=== PATIENT | female | born 1950 | race Caucasian/White ===

== ENCOUNTER → 2017-11-15 07:35 | Outpatient (CLI) | payer OTHER ==
[~2017-11-15 07:35] MED LIST: CLONAZEPAM0.5 MG PO; METFORMIN HCL1000 MG PO; NOVOLIN R100 UNIT/1 SUBCUTANEO; PREDNISONE20 MG PO; PREDNISONE50 MG PO
== END | disposition home or self-care (01) ==
LOC: LAB 07:35
DX: D69.3 Immune thrombocytopenic purpura (principal)

== ENCOUNTER 2021-02-09 11:29 | Outpatient (CLI) | payer OTHER | END 2021-02-09 11:38 | disposition home or self-care (01) | LOC: SONOGRAMA 11:29 | PROVIDERS: ATTEND Pathology Anatomic Pathology & Clinical Pathology | DX: D34 Benign neoplasm of thyroid gland (principal); E04.1 Nontoxic single thyroid nodule ==

== ENCOUNTER 2021-02-16 15:55 | Emergency (ER) | payer OTHER ==
[~2021-02-16] VITALS: Ht 165.1 cm; Wt 81.2 kg
[2021-02-16] MEDS ORDERED: TRULICITY0.75 MG/0. (16:07)
[2021-02-16] MEDS ORDERED: HORIZANT300 MG (16:09)
[2021-02-16] MEDS ORDERED: NORFLEX100MG PO (16:35)
[2021-02-16] MEDS ORDERED: DOLOGEN CAPLET1 EACH PO (16:35)
== END 2021-02-16 17:24 | disposition home or self-care (01) ==
LOC: ER 15:55
DX: M54.5 Low back pain (principal); M79.604 Pain in right leg

== ENCOUNTER → 2021-05-22 15:00 | Outpatient (CLI) | payer OTHER ==
[~2021-05-22 15:00] MED LIST changes: +DOLOGEN CAPLET1 EACH PO; +HORIZANT300 MG; +NORFLEX100MG PO; +TRULICITY0.75 MG/0.
== END | disposition home or self-care (01) ==
LOC: PPH VACUNA 15:00
DX: Z23 Encounter for immunization (principal)

== ENCOUNTER 2022-01-03 08:00 | Outpatient (CLI) | payer OTHER | END 2022-01-03 08:30 | disposition home or self-care (01) | LOC: PPH VACUNA 08:00 | PROVIDERS: ATTEND Emergency Medicine Pediatric Emergency Medicine | DX: Z23 Encounter for immunization (principal) ==

== ENCOUNTER 2024-09-16 18:33 | Emergency (ER) | payer OTHER ==
[~2024-09-16] VITALS: Ht 165.1 cm; Wt 80.3 kg
[2024-09-16] MEDS ORDERED: AMBIEN5 MG PO (19:29)
[2024-09-16 19:30] VITALS: BP 200/90; O2SAT 99
[2024-09-16] MEDS ORDERED: TOPROL XL25 M1 PO (19:30)
[2024-09-16] MEDS ORDERED: METOCLOPRAMIDE HCL 5 MG/ML VIAL IM STA (20:44)
[2024-09-16] MEDS ORDERED: MECLIZINE HCL 25 MG TABLET PO STA (20:44)
[2024-09-16] MEDS ORDERED: hydrOXYzine PAMOATE 50 MG CAPSULE PO STA (20:45)
== END 2024-09-16 23:02 | disposition home or self-care (01) ==
LOC: ER 18:33
DX: H81.10 Benign paroxysmal vertigo, unspecified ear (principal); I10 Essential (primary) hypertension; E11.9 Type 2 diabetes mellitus without complications; Z79.84 Long term (current) use of oral hypoglycemic drugs; Z88.8 Allergy status to other drugs, medicaments and biological substances; Z91.013 Allergy to seafood
CPT/HCPCS: 93005; 96372; 99283; J2765

== ENCOUNTER 2024-12-31 10:10 | Outpatient (CLI) | payer OTHER ==
[~2024-12-31 10:10] MED LIST changes: +AMBIEN5 MG PO; +TOPROL XL25 M1 PO
== END 2024-12-31 10:12 | disposition home or self-care (01) ==
LOC: SONOGRAMA 10:10
PROVIDERS: ATTEND Pathology Anatomic Pathology & Clinical Pathology
DX: D34 Benign neoplasm of thyroid gland (principal); E04.1 Nontoxic single thyroid nodule

== ENCOUNTER 2025-02-08 17:01 | Inpatient (IN) | payer OTHER ==
[~2025-02-08] VITALS: Ht 165.1 cm; Wt 79.4 kg
--- NOTE | 2025-02-08 19:02 | NUR ---
PACIENTE ALERTA Y ORIENTADA X3 LA MISMA REFIERE QUE ROTHMAN MEDICO LA ENVIO A JAYLIN DE EMERGENCIA POR QUE TIENE LAS PLAQUETAS EN MENOS DE 5000.LA PACIENTE PRESENTA EMATOMAS EN LAS COYONTURAS. S/V ESTABLE DENTRO DE ROTHMAN CONDICION.PACIENTE EN LEOLA CON BARANDAS ELEVADAS EN ESPERA DE EVALUACION MEDICA.
[2025-02-08] MEDS ORDERED: 0.9 % SODIUM CHLORIDE 1,000 ML IV SCH ×2 (19:30→23:15)
--- NOTE | 2025-02-08 20:08 | NUR ---
SE EDUCA A PTE SOBRE [place] MEDICO, SE TANGELA MUESTRAS DE LABORATORIO UTILIZANDO MEDIDAS ASEPTICAS. SE COLOCA H/L ANGELINA DE EDEMA. SE COLOCA IV FLUIDS A PTE AYLIN ORDEN MEDICA.
[2025-02-08 20:09] LABS: INR 1.22; PROTHROMBIN TIME 13.1 SECONDS (9.0-11.5)
[2025-02-08 20:12] LABS: BASO % 0.9 % (0.1-1.2); EOS # 0.15 (0.04-0.54); EOS % 3.5 % (0.7-7.0); HEMATOCRIT 35.5 % (34.1-44.9); HEMOGLOBIN 12.3 g/dL (11.2-15.7); LYMPH # 2.37 (1.18-3.74); LYMPH % 55.1 % (19.3-53.1); MEAN CORPUSCULAR HEMOGLOBIN 31.2 pg (25.6-32.2); MONO # 0.37 (0.24-0.82); MONO % 8.6 % (4.7-12.5); NEUT # 1.34 (1.56-6.13); NEUT % 31.2 % (34.0-71.1); RED BLOOD COUNT 3.94 M/uL (3.93-5.22); RED CELL DISTRIBUTION WIDTH 13.7 % (11.6-14.4)
[2025-02-08 20:13] LABS: ALBUMIN 3.6 gm/dL (3.4-5.0); BILIRUBIN TOTAL 1.49 mg/dL (0.3-1.2); CREATININE SERUM 0.76 mg/dL (0.55-1.02); GFR 74.39; GLOBULINA 3.5 G/DL (2.4-3.5); POTASSIUM 4.74 mEq/L (3.5-5.1); TOTAL PROTEIN 7.1 gm/dL (6.4-8.2)
[2025-02-08 21:22] LABS: PLATELET COUNT 1 K/uL (163-369)
--- NOTE | 2025-02-08 22:04 | NUR ---
SE REQUIZAN 2 UNIDADES DE AFERESIS A PTE AYLIN ORDEN MEDICA, PTE FIRMA AUTORIZACION DE TRANSFUCION Y SE COLOCA EL MISMO EN RECORD. SE LLEVAN TUBOS PILOTOS A LABORATORIO A LAS 10:10PM.
--- NOTE | 2025-02-08 22:40 | NUR ---
SE LLENA 3ER TUBO DENYS A PTE (TIPO SANJAY), SE LLEVA EL MISMO A LABORATORIO.
[2025-02-08] MEDS ORDERED: METHYLPREDNISOLONE SOD SUCC 125 MG VIAL IV ONE (23:30)
[2025-02-08] MEDS ORDERED: DEXTROSE 50 % IN WATER 0.5 G/ML VIAL IV PRN (23:30)
[2025-02-08] MEDS ORDERED: INSULIN LISPRO 1,000 UNIT/10 ML UNITS SUBCUTANEO PRN ×2 (23:30)
[2025-02-08] MEDS ORDERED: ACETAMINOPHEN 500 MG GEL..CAP PO PRN (23:30)
[2025-02-08] MEDS ORDERED: DEXTROSE 50 % IN WATER 0.5 G/ML DISP.SYRIN IV PRN (23:30)
[2025-02-09] MEDS ORDERED: METOPROLOL SUCCINATE 25 MG TAB.SR.24H PO SCH (09:00)
[2025-02-09] MEDS ORDERED: ROSUVASTATIN CALCIUM 10 MG TABLET PO SCH (09:00)
[2025-02-09] MEDS ORDERED: METHYLPREDNISOLONE SOD SUCC 40 MG VIAL IV SCH (09:00)
[2025-02-09 09:20] LABS: D DIMER 6.98 MG/L
[2025-02-09 12:16] LABS: URINE APPEARANCE Clear; URINE BILIRRUBIN Negative (NEGATIVE); URINE BLOOD Small; URINE COLOR Dark Yellow; URINE KETONE Trace (NEGATIVE); URINE LEUKOCYTE Large; URINE NITRATE Negative; URINE PROTEIN Trace (NEGATIVE)
[2025-02-09 12:20] LABS: URINE EPITHELIAL CELLS 133.9 uL (0.0-38.8); URINE RBC 77.7 uL (0.0-20.8); URINE WBC 161.1 uL (0.0-23.2)
[2025-02-09 13:01] LABS: URINE GLUCOSE 250 MG/DL (NEGATIVE)
[2025-02-09 13:02] LABS: URINE CAST 0.29 uL (0.0-1.40); URINE CRYSTALS MODERATE /HPF
[2025-02-09 17:37] VITALS: BP 150/80; O2SAT 99
[2025-02-09] MEDS ORDERED: FAMOTIDINE/PF 20 MG in 0.9 % SODIUM CHLORIDE 8 ML IV PUSH SCH (21:00)
[2025-02-09 23:36] LABS: HEMATOCRIT 33.6 % (34.1-44.9); HEMOGLOBIN 11.4 g/dL (11.2-15.7); LYMPH # 0.84 (1.18-3.74); LYMPH % 31.3 % (19.3-53.1); MEAN CORPUSCULAR HEMOGLOBIN 31.2 pg (25.6-32.2); MONO # 0.06 (0.24-0.82); MONO % 2.2 % (4.7-12.5); NEUT # 1.77 (1.56-6.13); NEUT % 66.1 % (34.0-71.1); RED BLOOD COUNT 3.65 M/uL (3.93-5.22); RED CELL DISTRIBUTION WIDTH 13.5 % (11.6-14.4)
[2025-02-10 00:39] VITALS: BP 136/72; O2SAT 95
[2025-02-10 00:58] LABS: PLATELET COUNT 4 K/uL (163-369)
[2025-02-10] MEDS ORDERED: PANTOPRAZOLE SODIUM 40 MG TABLET.DR PO SCH (09:00)
[2025-02-10] MEDS ORDERED: METHYLPREDNISOLONE SOD SUCC 40 MG VIAL IV SCH (09:00)
[2025-02-10] MEDS ORDERED: IMMUN GLOB G(IGG)/GLY/IGA OV50 20 G/200 ML VIAL IV SCH (09:00)
[2025-02-10 10:02] VITALS: BP 143/72; O2SAT 97
[2025-02-10 17:03] VITALS: BP 150/84; O2SAT 98
[2025-02-10 17:57] LABS: URINE APPEARANCE Clear; URINE BILIRRUBIN Negative (NEGATIVE); URINE BLOOD NHT; URINE COLOR Yellow; URINE KETONE Negative (NEGATIVE); URINE LEUKOCYTE Negative; URINE NITRATE Negative; URINE PROTEIN Trace (NEGATIVE)
[2025-02-10 18:01] LABS: URINE BACTERIA 141.9 uL (0.0-1933); URINE EPITHELIAL CELLS 2.8 uL (0.0-38.8); URINE RBC 23.2 uL (0.0-20.8)
[2025-02-10 18:05] LABS: URINE GLUCOSE 250 MG/DL (NEGATIVE)
[2025-02-10 18:16] LABS: CALCIUM 8.4 mg/dL (8.5-10.1); CREATININE SERUM 0.66 mg/dL (0.55-1.02); GFR 87.54; POTASSIUM 4.31 mEq/L (3.5-5.1)
[2025-02-11 00:45] VITALS: BP 116/68; O2SAT 94
[2025-02-11 01:49] LABS: HEMATOCRIT 30.7 % (34.1-44.9); HEMOGLOBIN 10.6 g/dL (11.2-15.7); LYMPH # 0.46 (1.18-3.74); LYMPH % 10.3 % (19.3-53.1); MEAN CORPUSCULAR HEMOGLOBIN 31.3 pg (25.6-32.2); MONO # 0.18 (0.24-0.82); NEUT % 85.3 % (34.0-71.1); RED BLOOD COUNT 3.39 M/uL (3.93-5.22); RED CELL DISTRIBUTION WIDTH 13.6 % (11.6-14.4)
[2025-02-11 02:23] LABS: PLATELET COUNT 44 K/uL (163-369)
[2025-02-11 08:11] VITALS: BP 139/73; O2SAT 97
[2025-02-11] MEDS ORDERED: INSULIN GLARGINE,HUM.REC.ANLOG 1,000 UNITS/10 ML UNITS SUBCUTANEO SCH ×2 (09:00→21:00)
[2025-02-11] MEDS ORDERED: POLYETHYLENE GLYCOL 3350 17 GM BLIST.PACK PO SCH (09:00)
[2025-02-11 17:50] VITALS: BP 156/84; O2SAT 97
[2025-02-12] VITALS: BP 156/80; O2SAT 97
[2025-02-12 06:57] LABS: HEMATOCRIT 28.8 % (34.1-44.9); HEMOGLOBIN 9.8 g/dL (11.2-15.7); LYMPH # 0.43 (1.18-3.74); LYMPH % 11.1 % (19.3-53.1); MEAN CORPUSCULAR HEMOGLOBIN 31.8 pg (25.6-32.2); MONO # 0.17 (0.24-0.82); MONO % 4.4 % (4.7-12.5); NEUT # 3.24 (1.56-6.13); NEUT % 83.7 % (34.0-71.1); RED BLOOD COUNT 3.08 M/uL (3.93-5.22)
[2025-02-12 07:13] LABS: PLATELET COUNT 55 K/uL (163-369)
[2025-02-12 08:15] VITALS: BP 159/87; O2SAT 97
== END 2025-02-12 15:47 | disposition home or self-care (01) | DRG 813 ==
LOC: ER 17:56 → SEC-K 23:19 → MEDI 02-09 11:31
PROVIDERS: General Practice; Internal Medicine Hematology & Oncology; ADMIT Student in an Organized Health Care Education/Training Program; ATTEND Student in an Organized Health Care Education/Training Program
PROC: 30233R1 Transfusion of Nonautologous Platelets into Peripheral Vein, Percutaneous Approach (ICD-10-PCS; principal; 2025-02-09)
DX: D69.3 Immune thrombocytopenic purpura (principal); K70.30 Alcoholic cirrhosis of liver without ascites